=== PATIENT | male | born 1955 | race African-American/Black ===

== ENCOUNTER 2016-09-18 22:36 | Emergency (ER) | payer MEDICARE, OTHER ==
[~2016-09-18] VITALS: Ht 182.9 cm; Wt 110.0 kg
[2016-09-18 22:55] VITALS: BP 114/69; PULSE 101; RESP 20; TEMP 97.8; O2SAT 96
[2016-09-18] MEDS ORDERED: GLIP5TAB8 PO (23:07)
[2016-09-18] MEDS ORDERED: METF1000 PO (23:07)
[2016-09-18] MEDS ORDERED: SODIUM CHLOR 0.9% 1000 ML INJ 1,000 ML IV ONE (23:13)
--- NOTE | 2016-09-18 23:13 | PD ---
HPI Chief Complaint: Medical Clearance Time Seen by Provider: 22:52 Travel History International Travel<30 days: No Contact w/Intl Traveler<30days: No Traveled to known affect area: No History of Present Illness HPI Patient is a 61-year-old male presents emergency department for presyncopal type symptoms. Patient states this happened as soon as he was placed in the back of the squad car tonight after being placed under arrest. Patient denies any chest pain shortness of breath or focalized weakness. Denies any headaches. Patient states he has been drinking tonight. He also states she's been having chronic low back pain and usually takes [id number] medicines for but hasn't been taking them recently. Denies any saddle anesthesia symptoms. Patient also is concerned that his blood glucose is become more out of control that he states he has been taking his medicines. He is not followed with a primary care physician. He is accompanied by law enforcement is currently under arrest. PFSH Past Medical History Diabetes: Yes Patient Takes Glucophage: Yes (METFORMIN @ 0900) Diminished Hearing: No Hypertension: Yes Musculoskeletal: Yes (CHRONIC BACK PAIN) Tetanus Vaccination: Unknown Influenza Vaccination: Yes Past Surgical History Neurologic Surgery: Yes (CRACKED SKULL REPAIR?) Social History Alcohol Use: Yes (6-PACK PER WEEK) Tobacco Use: Yes (2 PPD) Substance Use: No Allergies-Medications (Allergen,Severity, Reaction): Coded Allergies: Codeine (Verified Adverse Reaction, Unknown, PALPITATIONS, 09/18/16) Reported Meds & Prescriptions Reported Meds & Active Scripts Active Reported Glipizide 5 Mg Tab 5 Mg PO BIDAC Take 30 minutes before a meal Metformin (Metformin HCl) 1,000 Mg Tab 1,000 Mg PO BIDPC With meals Review of Systems Except as stated in HPI: all other systems reviewed are Neg Physical Exam Narrative GENERAL: Well-developed well-nourished no apparent distress. SKIN: Focused skin assessment warm/dry. HEAD: Atraumatic. Normocephalic. EYES: Pupils equal and round. No scleral icterus. No injection or drainage. ENT: No nasal bleeding or discharge. Mucous membranes pink and moist. NECK: Trachea midline. No JVD. CARDIOVASCULAR: Regular rhythm and mildly tachycardic. No murmur appreciated. 2+ bilateral equal pulses in all 4 extremities. Adequate perfusion to his skin in all 4 extremities. RESPIRATORY: No accessory muscle use. Clear to auscultation. Breath sounds equal bilaterally. GASTROINTESTINAL: Abdomen soft, non-tender, nondistended. Hepatic and splenic margins not palpable. MUSCULOSKELETAL: No obvious deformities. No clubbing. No cyanosis. No edema. NEUROLOGICAL: Awake and alert and oriented, cranial nerves II through XII are grossly intact and nonfocal, 5 out of 5 strength in all 4 extremities. PSYCHIATRIC: Appropriate mood and affect; insight and judgment normal. Data Data Last Documented VS Vital Signs Date Time Temp Pulse Resp B/P Pulse Ox O2 Delivery O2 Flow Rate FiO2 09/19/16 00:00 18 98 Room Air 09/18/16 22:55 97.8 101 114/69 Orders Electrocardiogram (09/18/16 23:13) Complete Blood Count With Diff (09/18/16 23:13) Comprehensive Metabolic Panel (09/18/16 23:13) Troponin I (09/18/16 23:13) Urinalysis - C+S If Indicated (09/18/16 23:13) Ecg Monitoring (09/18/16 23:13) Iv Access Insert/Monitor (09/18/16 23:13) Oximetry (09/18/16 23:13) Sodium Chloride 0.9% Flush (Ns Flush) (09/18/16 23:15) Sodium Chlor 0.9% 1000 Ml Inj (Ns 1000 M (09/18/16 23:13) Alcohol (Ethanol) (09/18/16 23:13) Ibuprofen (Motrin) (09/18/16 23:45) Labs Laboratory Tests Test 09/18/16 09/19/16 23:30 00:00 White Blood Count 6.4 TH/MM3 Red Blood Count 5.03 MIL/MM3 Hemoglobin 15.1 GM/DL Hematocrit 44.2 % Mean Corpuscular Volume 87.8 FL Mean Corpuscular Hemoglobin 30.0 PG Mean Corpuscular Hemoglobin 34.2 % Concent Red Cell Distribution Width 13.7 % Platelet Count 231 TH/MM3 Mean Platelet Volume 8.5 FL Neutrophils (%) (Auto) 48.3 % Lymphocytes (%) (Auto) 43.2 % Monocytes (%) (Auto) 7.2 % Eosinophils (%) (Auto) 0.5 % Basophils (%) (Auto) 0.8 % Neutrophils # (Auto) 3.1 TH/MM3 Lymphocytes # (Auto) 2.8 TH/MM3 Monocytes # (Auto) 0.5 TH/MM3 Eosinophils # (Auto) 0.0 TH/MM3 Basophils # (Auto) 0.1 TH/MM3 CBC Comment DIFF FINAL Differential Comment Sodium Level 137 MEQ/L Potassium Level 3.9 MEQ/L Chloride Level 102 MEQ/L Carbon Dioxide Level 23.3 MEQ/L Anion Gap 12 MEQ/L Blood Urea Nitrogen 13 MG/DL Creatinine 1.23 MG/DL Estimat Glomerular Filtration 72 ML/MIN Rate Random Glucose 237 MG/DL Calcium Level 8.7 MG/DL Total Bilirubin 0.5 MG/DL Aspartate Amino Transf 12 U/L (AST/SGOT) Alanine Aminotransferase 23 U/L (ALT/SGPT) Alkaline Phosphatase 95 U/L Troponin I LESS THAN 0.02 NG/ML Total Protein 7.9 GM/DL Albumin 4.0 GM/DL Ethyl Alcohol Level 103 MG/DL Urine Color YELLOW Urine Turbidity CLEAR Urine pH 5.0 Urine Specific [place] 1.010 Urine Protein TRACE mg/dL Urine Glucose (UA) 300 mg/dL Urine Ketones NEG mg/dL Urine Occult Blood TRACE Urine Nitrite NEG Urine Bilirubin NEG Urine Urobilinogen LESS THAN 2.0 MG/DL Urine Leukocyte Esterase TRACE Urine RBC 1 /hpf Urine WBC 6 /hpf Urine Squamous Epithelial <1 /hpf Cells Urine Renal Epithelial Cells <1 /hpf Urine Hyaline Casts 10 /lpf Urine Mucus FEW /lpf Microscopic Urinalysis Comment CULT NOT INDICATED MDM Medical Decision Making Medical Screen Exam Complete: Yes Emergency Medical Condition: Yes Interpretation(s) EKG shows sinus rhythm with a left axis deviation. Late R-wave transition. Intervals show first-degree heart block with a LA interval of 258 otherwise within normal limits. No concerning ST T changes. This abnormal EKG. no previous available for comparison. Differential Diagnosis Pre-syncope, anemia, hyperglycemia, ACS unlikely, AMI unlikely, CHF unlikely. Narrative Course Patient is a 61 year old male presents to the ER with pre-syncopal symptoms. Physical exam and initial workup is notable only for mild tachycardia and alcohol level of 100. Otherwise PE and initial workup including CBC, CMP, TN, EKG are WNL. Patient appears well. He is medically stable to pursue workup of this condition as an outpatient. He is medically stable for fdc. DIscussed follow up with his PCP and continuing his medications as prescribed. Discussed return to ED criteria. Quite pleasant male discharged to in nad. His tachycardia was improved on revisit after NS and is now 88-96. He is sleeping on reassess, easily arousable. Diagnosis Primary Impression: Pre-syncope Additional Impression: Hyperglycemia due to type 2 diabetes mellitus Qualified Code: E11.65 - Type 2 diabetes mellitus with hyperglycemia, without long-term current use of insulin Disposition: [address] LAW ENFORCEMNT Condition: Stable Leon Olson MD Sep 18, 2016 23:13
[2016-09-18] MEDS ORDERED: SODIUM CHLORIDE 0.9% FLUSH 10 ML FLUSH IVF PRN (23:15)
[2016-09-18] MEDS ORDERED: IBUPROFEN 600 MG TAB PO ONE (23:45)
[2016-09-19] VITALS: RESP 18; O2SAT 98
[2016-09-19 00:04] LABS: AUTOMATED NEUTROPHIL # 3.1 TH/MM3 (1.8-7.7); BASOPHIL # 0.1 TH/MM3 (0-0.2); BASOPHIL % 0.8 % (0.0-2.0); EOSINOPHIL % 0.5 % (0.0-4.0); HEMATOCRIT 44.2 % (39.0-51.0); HEMO FLAGS DIFF FINAL; LYMPH % 43.2 % (9.0-44.0); LYMPHOCYTE # 2.8 TH/MM3 (1.0-4.8); MEAN CELL VOLUME 87.8 FL (80.0-100.0); MEAN CORPUSCULAR HGB CONC 34.2 % (32.0-36.0); MONO % 7.2 % (0.0-8.0); NEUT % 48.3 % (16.0-70.0); PLATELET COUNT 231 TH/MM3 (150-450); RED BLOOD COUNT 5.03 MIL/MM3 (4.50-5.90); RED CELL DISTRIBUTION WIDTH 13.7 % (11.6-17.2); WHITE BLOOD COUNT 6.4 TH/MM3 (4.0-11.0)
[2016-09-19 00:28] LABS: ANION GAP 12 MEQ/L (5-15); AST (GOT) 12 U/L (15-37); BICARBONATE 23.3 MEQ/L (21.0-32.0); BLOOD UREA NITROGEN 13 MG/DL (7-18); CHLORIDE 102 MEQ/L (98-107); GLOMERULAR FILTRATION RATE 72 ML/MIN (>89); POTASSIUM 3.9 MEQ/L (3.5-5.1); SODIUM (NA) 137 MEQ/L (136-145)
[2016-09-19 00:29] LABS: BLOOD, URINE TRACE (NEG); GLUCOSE,URINE 300 mg/dL (NEG); HYALINE CAST, URINE 10 /lpf (RARE); KETONE, URINE NEG (NEG); MUCUS URINE FEW /lpf (OCC); NITRITE,URINE NEG (NEG); RENAL EPITHELIAL CELLS <1 /hpf; SQUAMOUS EPITHELIAL CELL URINE <1 /hpf (0-5); URINE COLOR YELLOW (YELLW/STRAW)
[2016-09-19 00:31] LABS: COMMENT (UR) CULT NOT INDICATED; CULTURE IF INDICATED CULT NOT INDICATED
[2016-09-19 00:32] LABS: ALKALINE PHOSPHATASE 95 U/L (45-117); ALT (GPT) 23 U/L (12-78); TOTAL BILIRUBIN ADULT 0.5 MG/DL (0.2-1.0)
--- NOTE | 2016-09-19 10:31 | EKG ---
Date Performed: 09/18/2016 Time Performed: 23:32:28 PTAGE: 61 years EKG: Sinus rhythm WITH FIRST DEGREE AV BLOCK MARKED LEFT AXIS DEVIATION ABNORMAL ECG NO PREVIOUS TRACING DOCTOR: Maritza Forte Interpretating Date/Time 09/19/2016 10:26:17
== END 2016-09-19 01:06 ==
LOC: NEPE 22:36
DX: R55 Syncope and collapse (principal); E11.65 Type 2 diabetes mellitus with hyperglycemia; R00.0 Tachycardia, unspecified; I44.0 Atrioventricular block, first degree; R94.31 Abnormal electrocardiogram [ECG] [EKG]; I10 Essential (primary) hypertension; F17.210 Nicotine dependence, cigarettes, uncomplicated; Z79.84 Long term (current) use of oral hypoglycemic drugs
CPT/HCPCS: 80053; 80307; 81001; 84484; 85025; 93005; 99284; J7030